=== PATIENT | female | born 1970 | race Caucasian/White ===

== ENCOUNTER 2016-07-04 08:51 | Day surgery (SDC) | payer OTHER ==
[2016-07-04] VITALS (8 sets, daily range): BP systolic 104–178; BP diastolic 53–112; PULSE 88–98; RESP 18–20; TEMP 97.4; O2SAT 93–99
[~2016-07-04 08:51] MED LIST: HYDR-3533 PO; MORP1CAP63 PO; XELO500T PO
[2016-07-04] MEDS ORDERED: EMEN80PA PO (09:50)
[2016-07-04] MEDS ORDERED: LIDOCAINE 1%/EPINEPHrine 1:100,000 SOLN 20 ML VIAL ONE (09:59)
[2016-07-04] MEDS ORDERED: fentaNYL CITRATE 250 MCG/5 ML AMP ONE (10:20)
[2016-07-04] MEDS ORDERED: MIDAZOLAM HCL 5 MG/5 ML VIAL ONE (10:20)
[2016-07-04] MEDS ORDERED: BUPIVACAINE HCL PF 0.75% 30 ML VIAL ONE (10:32)
[2016-07-04] MEDS ORDERED: THROMBIN (TOPICAL) 5,000 UNIT VIAL ONE (10:51)
[2016-07-04] MEDS ORDERED: SODIUM CHLOR 0.9% 1000 ML INJ 1,000 ML IV SCH (11:00)
[2016-07-04] MEDS ORDERED: ONDANSETRON HCL 4 MG/2 ML VIAL ONE (11:18)
[2016-07-04] MEDS ORDERED: HYDROmorphone HCL PF 1 MG/ML VIAL IV PRN (12:15)
[2016-07-04] MEDS ORDERED: SODIUM CHLORIDE 0.9% FLUSH 10 ML FLUSH IV FLUSH PRN (12:15)
--- NOTE | 2016-07-04 14:31 | RADRPT ---
EXAM DATE/TIME: 07/04/2016 11:00 [facility] COMPARISON: CT NEEDLE BIOPSY LIVER, December 20, 2015, 8:37. INDICATIONS : Liver mass. SEDATION TIME: 45 minutes BIOPSY SITE: Liver MEDICATION(S): 1.) 4 mg midazolam (Versed) IV 2.) 200 mcg fentanyl (Sublimaze) IV DEVICE(S): 1.) 18 gauge Conrad blunt needle 2.) 20 gauge Temno core biopsy needle MEDICAL HISTORY : Carcinoma, breast. Metastatic, liver. Hypertension. SURGICAL HISTORY : section. Hysterectomy. ENCOUNTER: Initial ACUITY: 1 day PAIN SCORE: 0/10 LOCATION: Liver A total of two core specimen(s) were obtained and sent to the laboratory for pathologic evaluation. PROCEDURE: 1. CT guided liver biopsy. 2. Conscious sedation with continuous EKG and oximetry monitoring. 3. EKG and oximetry remained stable throughout the procedure. Prior to the procedure informed consent was obtained. Any appropriate prior imaging studies were rev iewed. Using automated exposure control and adjustment of the mA and/or kV according to patient size, radiat ion dose was kept as low as reasonably achievable to obtain optimal diagnostic quality images. The site was prepped in a sterile fashion. Full sterile technique was used, including cap, mask, cornelius rile gloves and gown and a large sterile sheet. Hand hygiene and 2% chlorhexidine and/or betadine/al cohol prep was utilized per protocol for cutaneous antisepsis. The skin and subcutaneous tissues wer e infiltrated with local anesthetic solution. Under CT guidance an 18 gauge blunt needle was placed down to the lesion in the right lobe of the stacey er. 2 cores were obtained. The track was embolized with Gelfoam and thrombin. The patient tolerated the procedure well and there were no complications. The patient was returned to the Radiology Outpatient Unit in stable condition. CONCLUSION: Uncomplicated CT guided biopsy. Material was collected for the ordered genetic studies. Casey Sanchez MD FACR on July 04, 2016 at 14:29 Board Certified Radiologist. This report was verified electronically.
[2016-09-21] MEDS ORDERED: MORP1TAB24 PO (14:46)
== END 2016-07-04 16:00 | disposition home or self-care (01) ==
LOC: HRAD 08:51 → HRIP 08:54 → HRAD 16:00
PROVIDERS: ATTEND Internal Medicine Hematology
DX: C78.7 Secondary malignant neoplasm of liver and intrahepatic bile duct (principal); C79.52 Secondary malignant neoplasm of bone marrow; C50.919 Malignant neoplasm of unspecified site of unspecified female breast; D70.1 Agranulocytosis secondary to cancer chemotherapy; I10 Essential (primary) hypertension
CPT/HCPCS: 47000; 77012; 88307; J1170; J1642; J2250; J2405; J3010; J7030

== ENCOUNTER 2016-09-14 09:41 | Day surgery (SDC) | payer OTHER ==
[~2016-09-14 09:41] MED LIST changes: +EMEN80PA PO
[2016-09-14 10:48] VITALS: BP 127/79; PULSE 97; RESP 16; TEMP 97.7; O2SAT 98
[2016-09-14 12:00] VITALS: BP 138/84; PULSE 89; RESP 20; TEMP 98.1; O2SAT 98
[2016-09-14 12:15] VITALS: BP 124/68; PULSE 74; RESP 18; O2SAT 97
[2016-09-14] MEDS ORDERED: ALBUMIN HUMAN 25% 25 GM/100 ML BAGP IV ONE (12:30)
--- NOTE | 2016-09-14 12:51 | RADRPT ---
EXAM DATE/TIME: 09/14/2016 10:35 [facility] COMPARISON: No previous studies available for comparison. INDICATIONS : Ascites. MEDICAL HISTORY : Hypertension. Left breast cancer. Liver mets. Bone mets. SURGICAL HISTORY : section. Hysterectomy. D&C. ENCOUNTER: Initial ACUITY: 2 weeks PAIN SCORE: 0/10 LOCATION: Right lower quadrant FLUID: Total volume of 3400 cc of clear, yellow fluid was removed. Fluid was sent to lab for ordered studies. Post procedure scanning reveals no hematoma or other complication. TECHNIQUE: 1. Ultrasound guidance for abdominal paracentesis. 2. Paracentesis. The risks, benefits, and alternatives to ultrasound guided paracentesis were explained to the patient in detail including the risk of bleeding and infection. Written and verbal informed consent was obt ained. With the patient on the ultrasound table, ultrasound imaging was used to select the most appropriate approach for paracentesis. Overlying skin was prepped and draped in the usual sterile fashion and wi th a local anesthetic, a dermatotomy was made with an 11 blade scalpel. A 6 [place] Lsu[employer] ca theter was introduced into the peritoneal cavity and fluid was collected. The patient tolerated the procedure well and left the ultrasound suite in stable condition. CONCLUSION: Uncomplicated ultrasound guided paracentesis. Casey Sanchez MD FACR on September 14, 2016 at 12:49 Board Certified Radiologist. This report was verified electronically.
[2016-09-21] MEDS ORDERED: MORP1TAB24 PO (14:46)
== END 2016-09-14 12:31 | disposition home or self-care (01) ==
LOC: HRAD 09:41 → HRIP 09:44 → HRAD 12:31
PROVIDERS: ATTEND Internal Medicine Hematology
DX: R18.8 Other ascites (principal); C50.912 Malignant neoplasm of unspecified site of left female breast; C78.7 Secondary malignant neoplasm of liver and intrahepatic bile duct; C79.51 Secondary malignant neoplasm of bone; I10 Essential (primary) hypertension
CPT/HCPCS: 49083; C1729

== ENCOUNTER 2016-09-21 14:12 | Inpatient (IN) | payer OTHER ==
[~2016-09-21] VITALS: Ht 165.1 cm; Wt 92.6 kg
[2016-09-21 14:17] VITALS: BP 145/77; PULSE 98; RESP 20; TEMP 97.6; O2SAT 97
[2016-09-21] MEDS ORDERED: MORP1TAB24 PO ×2 (14:46)
[2016-09-21] MEDS ORDERED: CAPE1TAB2 PO (14:46)
[2016-09-21] MEDS ORDERED: OXYC-395 PO (14:47)
[2016-09-21 14:49] VITALS: PULSE 100; RESP 18; O2SAT 96
[2016-09-21] MEDS ORDERED: SODIUM CHLOR 0.9% 1000 ML INJ 1,000 ML IV SCH (15:20)
--- NOTE | 2016-09-21 15:22 | PD ---
HPI Chief Complaint: Pain: Acute or Chronic Time Seen by Provider: 15:22 Travel History International Travel<30 days: No Contact w/Intl Traveler<30days: No Traveled to known affect area: No History of Present Illness HPI 46-year-old female with a history of breast cancer with metastases to the liver and bone presents to the emergency department for evaluation of nausea, vomiting , back pain and abdominal distention. She is currently receiving chemotherapy every 14 days, last received 09/10/16. The patient states that she's had abdominal distention for the past 2 weeks. States that she had a paracentesis performed as an outpatient one week ago here in our IR suite. She states she initially had some improvement of symptoms after the paracentesis but it has since returned. States she's also had some abdominal cramping over the last 2 days intermittently. She states that over the past 4 days she's had back spasming in her middle and left lower back after receiving a massage. States that her oncologist Dr. Rose ordered an outpatient MRI to rule out occult fracture and she was scheduled to have it today however she started having nausea and vomiting and was told to come to the emergency department. She states she is also having some mild lightheadedness and shortness of breath. She denies any fever, chills, chest pain, diarrhea, dysuria, headache, cough or cold symptoms. Prior abdominal surgeries include hysterectomy. No other complaints. PFSH Past Medical History Hx Anticoagulant Therapy: No Depression: Yes Cancer: Yes (left breast with mets to the bone and liver) Cardiovascular Problems: No Chemotherapy: Yes (09/10/16) Cerebrovascular Accident: No Diabetes: No Diminished Hearing: No Endocrine: No Glaucoma: No Genitourinary: No Hepatitis: No Hiatal Hernia: No Hypertension: Yes Immune Disorder: No Musculoskeletal: No Neurologic: Yes (hx of migraines) Psychiatric: No Reproductive: No Respiratory: No Immunizations Current: No Thyroid Disease: No ?: Not Past Surgical History Abdominal Surgery: No AICD: No Body Medical Devices: infusaport Cardiac Surgery: No Section: Yes Ear Surgery: No Endocrine Surgery: No Eye Surgery: No Genitourinary Surgery: No Gynecologic Surgery: Yes (x3 c-sections d and c x2 hysterectomy) Hysterectomy: Yes Joint Replacement: No Oral Surgery: No Pacemaker: No Thoracic Surgery: Yes (RIGHT PORT INSERTED) Other Surgery: Yes Social History Alcohol Use: Yes (OCCAS.) Tobacco Use: Yes (QUIT) Substance Use: No Allergies-Medications (Allergen,Severity, Reaction): Coded Allergies: No Known Allergies (Verified , 09/21/16) Reported Meds & Prescriptions Reported Meds & Active Scripts Active Reported Oxycodone (Oxycodone HCl) 10 Mg Tab 10 Mg PO Q4H PRN Morphine ER (Morphine Sulfate) 15 Mg Tab 5 Mg PO BID Capecitabine 500 Mg Tab 1,500 Mg PO BID Cytotoxic agent. Swallow whole with water 30 minutes after a meal. Do not cut or crush. Review of Systems Except as stated in HPI: all other systems reviewed are Neg Physical Exam Narrative GENERAL: Well-nourished and well-developed pleasant patient in no acute distress who is nontoxic appearing. SKIN: Warm and dry. HEAD: Normocephalic and atraumatic. EYES: No injection, drainage, or hyphema noted. PERRLA. EOMI. ENT: No nasal drainage noted. Oropharynx is clear. NECK: Supple and the trachea is midline. CARDIOVASCULAR: Regular rate and rhythm. RESPIRATORY: Breath sounds are equal bilaterally with no accessory muscle use, wheezing, rhonchi, or crackles. GASTROINTESTINAL: Abdominal distention noted however soft and nontender. No rebound tenderness or guarding. MUSCULOSKELETAL: No obvious deformities, swelling, cyanosis, or ecchymosis is present throughout the upper and lower extremities. Patient has full range of motion without any signs of neurovascular compromise. BACK: Mild tenderness to palpation of left lumbar paraspinal muscles. No obvious deformities, bony point tenderness, or crepitus noted throughout the thoracic and lumbar vertebrae. NEUROLOGICAL: Awake, alert, and oriented. Normal speech and gait. Cranial nerves are grossly intact. Data Data Last Documented VS Vital Signs Date Time Temp Pulse Resp B/P Pulse Ox O2 Delivery O2 Flow Rate FiO2 09/21/16 19:30 97 16 129/77 96 Room Air 09/21/16 14:17 97.6 Orders Complete Blood Count With Diff (09/21/16 15:20) Comprehensive Metabolic Panel (09/21/16 15:20) Lipase (09/21/16 15:20) Lactic Acid (09/21/16 15:20) Prothrombin Time / Inr (Pt) (09/21/16 15:20) Act Partial Throm Time (Ptt) (09/21/16 15:20) Urinalysis - C+S If Indicated (09/21/16 15:20) Ct Abd/Pel W Iv Contrast(Rout) (09/21/16 15:20) Iv Access Insert/Monitor (09/21/16 15:20) Ecg Monitoring (09/21/16 15:20) Oximetry (09/21/16 15:20) Morphine Inj (Morphine Inj) (09/21/16 15:30) Ondansetron Inj (Zofran Inj) (09/21/16 15:30) Sodium Chlor 0.9% 1000 Ml Inj (Ns 1000 M (09/21/16 15:20) Sodium Chloride 0.9% Flush (Ns Flush) (09/21/16 15:30) Mri L Spine W&W/O Contrast (09/21/16 ) Chest, Single Ap (09/21/16 16:49) Iohexol 350 Inj (Omnipaque 350 Inj) (09/21/16 17:48) Gadodiamide Pf Inj (Omniscan Pf Inj) (09/21/16 18:41) Invasive Rad Dept Consult (09/21/16 ) Admit Order (Ed Use Only) (09/21/16 19:51) Labs Laboratory Tests Test 09/21/16 09/21/16 09/21/16 15:20 15:50 15:55 Prothrombin Time 12.8 SEC Prothromb Time International 1.2 RATIO Ratio Activated Partial 29.4 SEC Thromboplast Time White Blood Count 6.0 TH/MM3 Red Blood Count 4.05 MIL/MM3 Hemoglobin 12.4 GM/DL Hematocrit 37.3 % Mean Corpuscular Volume 92.2 FL Mean Corpuscular Hemoglobin 30.7 PG Mean Corpuscular Hemoglobin 33.3 % Concent Red Cell Distribution Width 16.5 % Platelet Count 111 TH/MM3 Mean Platelet Volume 8.6 FL Neutrophils (%) (Auto) 81.7 % Lymphocytes (%) (Auto) 10.1 % Monocytes (%) (Auto) 7.4 % Eosinophils (%) (Auto) 0.4 % Basophils (%) (Auto) 0.4 % Neutrophils # (Auto) 4.9 TH/MM3 Lymphocytes # (Auto) 0.6 TH/MM3 Monocytes # (Auto) 0.4 TH/MM3 Eosinophils # (Auto) 0.0 TH/MM3 Basophils # (Auto) 0.0 TH/MM3 CBC Comment DIFF FINAL Differential Comment Sodium Level 133 MEQ/L Potassium Level 4.4 MEQ/L Chloride Level 98 MEQ/L Carbon Dioxide Level 25.3 MEQ/L Anion Gap 10 MEQ/L Blood Urea Nitrogen 14 MG/DL Creatinine 0.50 MG/DL Estimat Glomerular Filtration 132 ML/MIN Rate Random Glucose 101 MG/DL Calcium Level 8.7 MG/DL Total Bilirubin 4.5 MG/DL Aspartate Amino Transf 385 U/L (AST/SGOT) Alanine Aminotransferase 63 U/L (ALT/SGPT) Alkaline Phosphatase 510 U/L Total Protein 6.1 GM/DL Albumin 2.4 GM/DL Lipase 314 U/L Urine Color DARK-ORANGE Urine Turbidity HAZY Urine pH 6.0 Urine Specific [place] 1.037 Urine Protein 30 mg/dL Urine Glucose (UA) NEG mg/dL Urine Ketones 40 mg/dL Urine Occult Blood MOD Urine Nitrite NEG Urine Bilirubin MOD Urine Urobilinogen 4.0 MG/DL Urine Leukocyte Esterase NEG Urine RBC 10 /hpf Urine WBC 1 /hpf Urine Squamous Epithelial 16 /hpf Cells Urine Mucus MANY /lpf Microscopic Urinalysis Comment CULT NOT INDICATED Lactic Acid Level 2.8 mmol/L MDM Medical Decision Making Medical Screen Exam Complete: Yes Emergency Medical Condition: Yes Differential Diagnosis Ascites versus dehydration versus electrolyte abnormality versus colitis versus other Narrative Course 46-year-old female with a history of breast cancer with metastases to the liver and bone presents to the emergency department for evaluation of ascites, back pain, nausea and vomiting. Patient is afebrile, she is tachycardic with a heart rate of 98 bpm. Otherwise vital signs are within normal limits. On physical examination she does have some abdominal distention however abdomen is soft and nontender. No peritoneal signs. IV access is obtained, labs were drawn and sent. Patient is administered IV fluids, morphine and Zofran. CT of the abdomen and pelvis has been ordered and is pending. She was scheduled to have an outpatient lumbar MRI today to rule out occult fracture per her oncologist and therefore will do this as well. CBC is unremarkable. CMP shows elevated LFTs, most recent prior for comparison were one year ago. Lactic acid is 2.8. Coags are unremarkable. Urinalysis shows 30 protein, 40 ketones, moderate occult blood, moderate bilirubin, 4.0 urobilinogen, 10 red blood cells, many mucus. Chest x-ray is unremarkable. CT of the abdomen and pelvis with IV contrast shows progression of metastatic disease to the liver since 2015 in 2016. Also development of liver cirrhosis with varices. Moderate ascites. Progression of metastatic bone disease. MRI shows multiple metastatic lesions scattered throughout the lumbar spine. No central canal stenosis or neural impingement. No vertebral body collapse. Patient has symptomatic ascites with distention and shortness of breath. The patient had outpatient paracentesis last week and her ascites has returned since then and she is symptomatic again. She'll be kept under observation and have IR perform paracentesis tomorrow morning for symptomatic management. Physician Communication Physician Communication I spoke with Dr. Richardson [facility] who agrees to accept this patient under observation status. Diagnosis Primary Impression: Ascites Qualified Code: R18.8 - Other ascites Additional Impression: Breast cancer metastasized to liver Qualified Code: C50.919 - Breast cancer metastasized to liver, unspecified laterality Admitting Information Admitting Physician Requests: Observation Deborah Dodge Sep 21, 2016 15:22
[2016-09-21] MEDS ORDERED: SODIUM CHLORIDE 0.9% FLUSH 10 ML FLUSH IV FLUSH PRN ×2 (15:30→20:00)
[2016-09-21] MEDS ORDERED: MORPHINE SULFATE 4 MG/ML INJ IV PUSH ONE (15:30)
[2016-09-21] MEDS ORDERED: ONDANSETRON HCL 4 MG/2 ML VIAL IVP ONE (15:30)
[2016-09-21 16:21] VITALS: BP 107/79; PULSE 95; RESP 18; O2SAT 97
[2016-09-21 16:29] LABS: AUTOMATED NEUTROPHIL # 4.9 TH/MM3 (1.8-7.7); BASOPHIL % 0.4 % (0.0-2.0); EOSINOPHIL % 0.4 % (0.0-4.0); HEMATOCRIT 37.3 % (35.0-46.0); HEMO FLAGS DIFF FINAL; LYMPH % 10.1 % (9.0-44.0); LYMPHOCYTE # 0.6 TH/MM3 (1.0-4.8); MEAN CELL VOLUME 92.2 FL (80.0-100.0); MEAN CORPUSCULAR HEMOGLOBIN 30.7 PG (27.0-34.0); MEAN CORPUSCULAR HGB CONC 33.3 % (32.0-36.0); MONO % 7.4 % (0.0-8.0); NEUT % 81.7 % (16.0-70.0); PLATELET COUNT 111 TH/MM3 (150-450); RED BLOOD COUNT 4.05 MIL/MM3 (4.00-5.30); RED CELL DISTRIBUTION WIDTH 16.5 % (11.6-17.2)
[2016-09-21 16:35] LABS: BLOOD, URINE MOD (NEG); COMMENT (UR) CULT NOT INDICATED; CULTURE IF INDICATED CULT NOT INDICATED; GLUCOSE,URINE NEG (NEG); KETONE, URINE 40 mg/dL (NEG); MUCUS URINE MANY /lpf (OCC); NITRITE,URINE NEG (NEG); SQUAMOUS EPITHELIAL CELL URINE 16 /hpf (0-5); URINE COLOR DARK-ORANGE (YELLW/STRAW)
[2016-09-21 16:47] LABS: APTT (PATIENT) 29.4 SEC (24.3-30.1); INTERNATIONAL NORMALIZED RATIO 1.2 RATIO; PROTHROMBIN TIME - PATIENT 12.8 SEC (9.8-11.6)
[2016-09-21 16:53] LABS: ANION GAP 10 MEQ/L (5-15); BICARBONATE 25.3 MEQ/L (21.0-32.0); BLOOD UREA NITROGEN 14 MG/DL (7-18); CHLORIDE 98 MEQ/L (98-107); GLOMERULAR FILTRATION RATE 132 ML/MIN (>89); POTASSIUM 4.4 MEQ/L (3.5-5.1); SODIUM (NA) 133 MEQ/L (136-145)
[2016-09-21 16:55] LABS: ALT (GPT) 63 U/L (10-53); AST (GOT) 385 U/L (15-37)
[2016-09-21 16:57] LABS: ALKALINE PHOSPHATASE 510 U/L (45-117); TOTAL BILIRUBIN ADULT 4.5 MG/DL (0.2-1.0)
[2016-09-21] MEDS ORDERED: IOHEXOL 350 MG/ML 10 ML VIAL (for RAD DIAG) IV ONE (17:48)
--- NOTE | 2016-09-21 17:58 | RADRPT ---
EXAM DATE/TIME: 09/21/2016 17:35 [facility] COMPARISON: CT ABDOMEN W/O CONTRAST, December 21, 2015, 16:47. INDICATIONS : Nausea and vomiting since this morning, swollen abdomen. IV CONTRAST: 99 cc Omnipaque 350 (iohexol) IV ORAL CONTRAST: No oral contrast ingested. RADIATION DOSE: 17.30 CTDIvol (mGy) MEDICAL HISTORY : Carcinoma, breast. Liver and bone mets. Chemo. SURGICAL HISTORY : Hysterectomy. ENCOUNTER: Initial ACUITY: 1 day PAIN SCALE: 9/10 LOCATION: Bilateral abdomen TECHNIQUE: Volumetric scanning of the abdomen and pelvis was performed. Using automated exposure control and ad justment of the mA and/or kV according to patient size, radiation dose was kept as low as reasonably achievable to obtain optimal diagnostic quality images. DICOM format image data is available electro nically for review and comparison. FINDINGS: Limited bases are clear. There is liver cirrhosis and widespread metastatic disease to the liver which does appear worse annie red with December 2015. There is moderate ascites that has developed. There is also development of v arices in the upper abdomen and recannulization of the periumbilical veins. Spleen, adrenals, kidneys and pancreas are stable. There is metastatic bone disease that has worsened with a 2 cm lesion now present at L2 on the left s tal. Other lesions are stable to slightly increased in size as well. No pelvic masses. There is pelvic ascites. CONCLUSION: 1. Progression of metastatic disease to the liver since 2014 and 2015. Also development of liver cirr hosis with varices. 2. Moderate ascites. 3. Progression of metastatic bone disease. Braeden Duncan MD on September 21, 2016 at 17:50 Board Certified Radiologist. This report was verified electronically.
--- NOTE | 2016-09-21 18:33 | RADRPT ---
EXAM DATE/TIME: 09/21/2016 17:48 [facility] COMPARISON: No previous studies available for comparison. INDICATIONS : Shortness of breath. Upper abdominal pain. MEDICAL HISTORY : Breast cancer with metastasis to liver and bone. SURGICAL HISTORY : Infusaport. ENCOUNTER: Initial ACUITY: 2 weeks PAIN SCORE: 0/10 LOCATION: chest FINDINGS: A single view of the chest demonstrates the lungs to be symmetrically aerated without evidence of mas s, infiltrate or effusion. Eventration of the right hemidiaphragm with elevation of the right hemidia phragm. The cardiomediastinal contours are unremarkable. Osseous structures are intact. A power por t overlies the right chest. CONCLUSION: No acute disease. Bro Davies Jr., MD on September 21, 2016 at 18:30 Board Certified Radiologist. This report was verified electronically.
[2016-09-21] MEDS ORDERED: GADODIAMIDE PF 287 MG/ML 5 ML VIAL (for RAD MRI) IV ONE (18:41)
[2016-09-21 19:30] VITALS: BP 129/77; PULSE 97; RESP 16; O2SAT 96
--- NOTE | 2016-09-21 19:46 | RADRPT ---
EXAM DATE/TIME: 09/21/2016 18:19 [facility] COMPARISON: CT ABDOMEN & PELVIS W CONTRAST, September 21, 2016, 17:35. INDICATIONS : Metastatic disease. CONTRAST: 19 cc Omniscan (gadodiamide) IV MEDICAL HISTORY : Carcinoma, breast. Metastatic disease. SURGICAL HISTORY : Hysterectomy. section. Infusa-port placment. ENCOUNTER: Subsequent ACUITY: 3 day PAIN SCORE: 8/10 LOCATION: Lower back. TECHNIQUE: Multiplanar multisequence MRI of the lumbar spine was performed with and without contrast. FINDINGS: The most caudal appearing lumbar vertebra is numbered as L5. VERTEBRAE: There is abnormal signal involving the marrow consistent with a marrow replacing process such as meta static disease. There are multiple areas of low signal involving the marrow throughout the T1-weighte d sequence involving T12, L2, L3, and L4. The vertebral body heights are maintained. CONUS: Normal level and configuration. POST CONTRAST: Heterogeneous enhancement of the lesions previously described. He show faint heterogeneous enhancemen t. T12-L1: The thecal sac has a normal diameter. No evidence of disc bulge or protrusion. The neural foramina are patent bilaterally. L1-L2: The thecal sac has a normal diameter. No evidence of disc bulge or protrusion. The neural foramina are patent bilaterally. L2-L3: The thecal sac has a normal diameter. No evidence of disc bulge or protrusion. The neural foramina are patent bilaterally. L3-L4: The thecal sac has a normal diameter. No evidence of disc bulge or protrusion. The neural foramina are patent bilaterally. L4-L5: The thecal sac has a normal diameter. No evidence of disc bulge or protrusion. The neural foramina are patent bilaterally. L5-S1: The thecal sac has a normal diameter. No evidence of disc bulge or protrusion. The neural foramina are patent bilaterally. CONCLUSION: 1. Multiple metastatic lesions scattered throughout the lumbar spine. No central canal stenosis or ne ural impingement. No vertebral body collapse. Bro Davies Jr., MD on September 21, 2016 at 19:39 Board Certified Radiologist. This report was verified electronically.
[2016-09-21] MEDS ORDERED: LACTULOSE SYRUP 20 GM/30 ML CUP PO PRN (20:00)
[2016-09-21] MEDS ORDERED: MORPHINE SULFATE 4 MG/ML INJ IV PRN ×2 (20:00→23:00)
[2016-09-21] MEDS ORDERED: SENNOSIDES 8.6 MG TAB PO PRN (20:00)
[2016-09-21] MEDS ORDERED: ACETAMINOPHEN 325 MG TAB PO PRN (20:00)
[2016-09-21] MEDS ORDERED: BISACODYL 10 MG SUPP RECTAL PRN (20:00)
[2016-09-21] MEDS ORDERED: MAGNESIUM HYDROXIDE SUSP 30 ML CUP PO PRN (20:00)
--- NOTE | 2016-09-21 20:02 | HHI.HP ---
[facility] [place] [facility] Stella Knox MD Admission Diagnosis Ascites, Breast Cancer w/ Metastases to Liver and Bone Diagnoses: (1) Ascites Diagnosis: Principal (2) Breast cancer metastasized to liver Diagnosis: Principal (3) Chronic back pain Diagnosis: Principal Travel History International Travel<30 Days: No Contact w/Intl Traveler <30 Da: No Traveled to Known Affected Are: No History of Present Illness This is a 46-year-old female with a PMH of Metastatic Breast CA who presented to the ER w/ progressive abdominal distention and worsening back pain x2 days. Follows w/ Dr. Rose as outpatient, currently on Chemotherapy, c/o back pain for which she was to have outpatient L-Spine MRI today, however presented to ER instead due to symptoms. Denies fever, chills, nausea or vomiting. On arrival , BP 145/77, HR 98, O2 sat 97% on RA, Afebrile. CBC unremarkable except for platelets 111, previously 208 on 12/20/15. Chemistry unremarkable except for elevated LFTs in comparison to previous labs from 04/07/15. Lactic Acid 2.8. UA negative for UTI. CXR with no acute findings. CT Abd/Pelvis w/ progression of metastatic disease to liver with development of liver cirrhosis and varices, moderate ascites, progression of metastatic bone disease. MRI L-spine with multiple metastatic lesions throughout lumbar spine no canal stenosis or impingement, patient aware of findings. Recent Paracentesis 09/14/16 w/ 1L hazy fluid removed, pathology negative for malignant cells. Review of Systems Except as stated in HPI: all other systems reviewed are Neg ROS: 14 point review of systems otherwise negative. Past Family Social History Past Medical History PMH: Metastatic Breast CA Past Surgical History PAST SURGICAL HISTORY: , Hysterectomy, Right [id number]-g-[id number] Allergies: Coded Allergies: No Known Allergies (Verified , 09/21/16) Family History PAST FAMILY HISTORY: Reviewed. No h/o DM or CAD Social History PAST SOCIAL HISTORY: Occasional alcohol. Negative for tobacco or drugs. Physical Exam Vital Signs Vital Signs Date Time Temp Pulse Resp B/P Pulse Ox O2 Delivery O2 Flow Rate FiO2 09/21/16 19:30 97 16 129/77 96 Room Air 09/21/16 16:21 95 18 107/79 97 Room Air 09/21/16 14:49 100 18 96 09/21/16 14:17 97.6 98 20 145/77 97 Room Air Physical Exam PE: GENERAL: Elderly white female in no acute distress. Mother bedside. HEENT: PERRLA, EOMI. No scleral icterus or conjunctival pallor. No lid lag or facial droop. CARDIOVASCULAR: Regular rate and rhythm. No obvious murmurs to auscultation. No chest tenderness to palpation. RESPIRATORY: No obvious rhonchi or wheezing. Clear to auscultation. Breath sounds equal bilaterally. GASTROINTESTINAL: Abdomen distended but soft, nontender. BS normal. MUSCULOSKELETAL: Extremities without clubbing, cyanosis, or edema. No obvious deformities. NEUROLOGICAL: Awake, alert and oriented x4. No focal neurologic deficits. Moving both upper and lower extremities spontaneously. Laboratory Laboratory Tests Test 09/21/16 09/21/16 09/21/16 15:20 15:50 15:55 Prothrombin Time 12.8 Prothromb Time International 1.2 Ratio Activated Partial 29.4 Thromboplast Time White Blood Count 6.0 Red Blood Count 4.05 Hemoglobin 12.4 Hematocrit 37.3 Mean Corpuscular Volume 92.2 Mean Corpuscular Hemoglobin 30.7 Mean Corpuscular Hemoglobin 33.3 Concent Red Cell Distribution Width 16.5 Platelet Count 111 Mean Platelet Volume 8.6 Neutrophils (%) (Auto) 81.7 Lymphocytes (%) (Auto) 10.1 Monocytes (%) (Auto) 7.4 Eosinophils (%) (Auto) 0.4 Basophils (%) (Auto) 0.4 Neutrophils # (Auto) 4.9 Lymphocytes # (Auto) 0.6 Monocytes # (Auto) 0.4 Eosinophils # (Auto) 0.0 Basophils # (Auto) 0.0 CBC Comment DIFF FINAL Differential Comment Sodium Level 133 Potassium Level 4.4 Chloride Level 98 Carbon Dioxide Level 25.3 Anion Gap 10 Blood Urea Nitrogen 14 Creatinine 0.50 Estimat Glomerular Filtration 132 Rate Random Glucose 101 Calcium Level 8.7 Total Bilirubin 4.5 Aspartate Amino Transf 385 (AST/SGOT) Alanine Aminotransferase 63 (ALT/SGPT) Alkaline Phosphatase 510 Total Protein 6.1 Albumin 2.4 Lipase 314 Urine Color DARK-ORANGE Urine Turbidity HAZY Urine pH 6.0 Urine Specific [place] 1.037 Urine Protein 30 Urine Glucose (UA) NEG Urine Ketones 40 Urine Occult Blood MOD Urine Nitrite NEG Urine Bilirubin MOD Urine Urobilinogen 4.0 Urine Leukocyte Esterase NEG Urine RBC 10 Urine WBC 1 Urine Squamous Epithelial 16 Cells Urine Mucus MANY Microscopic Urinalysis Comment CULT NOT INDICATED Lactic Acid Level 2.8 Result Diagram: 09/21/16 1550 09/21/16 1550 Assessment and Plan Problem List: (1) Ascites ICD Code: R18.8 Status: Acute (2) Breast cancer metastasized to liver ICD Code: C50.919 Status: Acute (3) Chronic back pain ICD Code: M54.9 Status: Acute Assessment and Plan A/P: 1. Ascites: Recurrent. s/p Paracentesis 09/14/16 w/ 1L fluid removed, cytology negative for malignancy, now w/ recurrent ascites. CT Abd/Pelvis w/ metastatic disease to liver with element of cirrhosis and varices, moderate ascites, images reviewed by me. Consult for IR ordered by ER physician for Paracentesis in am. 2. Breast CA: w/ Metastatic Disease to liver/spine. CT Abd/Pelvis as above w / progression of disease. Follows w/ Dr. Rose as outpatient, currently on Chemo. 3. Back Pain: Chronic. Secondary to metastatic disease. MRI L-Spine w/ multiple metastatic lesions scattered throughout lumbar spine however no canal stenosis or neural impingement, images reviewed by me. Currently prescribed Morphine 5mg bid, however states she does not normally take pain medications. Will resume home meds, Morphine IV as needed. 4. DVT Prophylaxis: SCD/Teds. 5. Social work for d/c planning as needed. 6. Case discussed w/ ER physician at length Problem Qualifiers (1) Ascites: Qualified Code: R18.8 - Other ascites (2) Breast cancer metastasized to liver: Qualified Code: C50.919 - Breast cancer metastasized to liver, unspecified laterality Lily Richardson MD Sep 21, 2016 20:02
[2016-09-21] MEDS ORDERED: MORPHINE SULFATE 15 MG CONTROLLED RELEASE TAB PO SCH (21:00)
[2016-09-21] MEDS ORDERED: CAPECITABINE 500 MG PO SCH (21:00)
[2016-09-21] MEDS: DOCUSATE SODIUM 50 MG/SENNA 8.6 MG TAB PO SCH (22:41)
[2016-09-21] MEDS: SODIUM CHLORIDE 0.9% FLUSH 10 ML FLUSH IV FLUSH SCH (22:42)
[2016-09-21] MEDS: ONDANSETRON HCL 4 MG/2 ML VIAL IVP PRN (22:42)
[2016-09-21 22:53] VITALS: BP 136/75; PULSE 98; RESP 18; TEMP 98.6; O2SAT 97
[2016-09-22] VITALS (7 sets, daily range): BP systolic 126–143; BP diastolic 77–87; PULSE 60–105; RESP 18; TEMP 97.8–99.4; O2SAT 92–98
[2016-09-22] MEDS: SODIUM CHLORIDE 0.9% FLUSH 10 ML FLUSH IV FLUSH SCH ×2 (09:01→20:29)
[2016-09-22] MEDS: MORPHINE SULFATE 15 MG CONTROLLED RELEASE TAB PO SCH ×2 (09:02→20:28)
[2016-09-22] MEDS: DOCUSATE SODIUM 50 MG/SENNA 8.6 MG TAB PO SCH ×2 (09:03→20:26)
[2016-09-22] MEDS: ONDANSETRON HCL 4 MG/2 ML VIAL IVP PRN (09:04)
[2016-09-22 10:34] LABS: AUTOMATED NEUTROPHIL # 3.5 TH/MM3 (1.8-7.7); BASOPHIL % 0.4 % (0.0-2.0); EOSINOPHIL # 0.1 TH/MM3 (0-0.4); EOSINOPHIL % 1.5 % (0.0-4.0); HEMATOCRIT 35.3 % (35.0-46.0); HEMO FLAGS DIFF FINAL; LYMPH % 14.2 % (9.0-44.0); LYMPHOCYTE # 0.7 TH/MM3 (1.0-4.8); MEAN CELL VOLUME 92.3 FL (80.0-100.0); MEAN CORPUSCULAR HGB CONC 33.5 % (32.0-36.0); MONO % 12.2 % (0.0-8.0); NEUT % 71.7 % (16.0-70.0); PLATELET COUNT 106 TH/MM3 (150-450); RED BLOOD COUNT 3.83 MIL/MM3 (4.00-5.30); RED CELL DISTRIBUTION WIDTH 16.6 % (11.6-17.2); WHITE BLOOD COUNT 4.9 TH/MM3 (4.0-11.0)
[2016-09-22 10:48] LABS: ALT (GPT) 64 U/L (10-53); ANION GAP 7 MEQ/L (5-15); AST (GOT) 370 U/L (15-37); BICARBONATE 29.1 MEQ/L (21.0-32.0); BLOOD UREA NITROGEN 10 MG/DL (7-18); CHLORIDE 100 MEQ/L (98-107); GLOMERULAR FILTRATION RATE 94 ML/MIN (>89); POTASSIUM 4.2 MEQ/L (3.5-5.1); SODIUM (NA) 136 MEQ/L (136-145)
[2016-09-22 10:50] LABS: ALKALINE PHOSPHATASE 457 U/L (45-117); TOTAL BILIRUBIN ADULT 4.6 MG/DL (0.2-1.0)
--- NOTE | 2016-09-22 11:55 | EKG ---
Date Performed: 09/21/2016 Time Performed: 18:10:33 PTAGE: 46 years EKG: Sinus rhythm LOW QRS VOLTAGE IN PRECORDIAL LEADS POSSIBLE ANTERIOR MYOCARDIAL INFARCTION Since previous tracing, no significant change noted BORDERLINE ECG PREVIOUS TRACING : 03/02/2010 00.30 DOCTOR: Tomi Turcios Interpretating Date/Time 09/22/2016 11:53:55
--- NOTE | 2016-09-22 17:07 | HHI.PR ---
Subjective Remarks Pt is a 46 y/o with metastatic breast cancer. Pt c/o recurrent abdominal pain and distension. Pt had first ever paracentesis on 09/14/16, but ascites appears to have reoccurred. Pt also c/o nausea. Pt fells that her pain is controlled on current medication regimen and does NOT want me to increase her pain medications. Objective Vitals Vital Signs Date Time Temp Pulse Resp B/P Pulse Ox O2 Delivery O2 Flow Rate FiO2 09/22/16 16:16 97.9 60 18 126/80 95 09/22/16 12:17 97.9 101 18 129/83 96 09/22/16 08:26 97.8 105 18 139/80 96 09/22/16 03:33 99.4 102 18 134/83 96 09/21/16 22:53 98.6 98 18 136/75 97 09/21/16 19:30 97 16 129/77 96 Room Air 09/21/16 09/21/16 09/22/16 15:00 23:00 07:00 Intake Total 240 ml 120 ml Balance 240 ml 120 ml Intake Oral 240 ml 120 ml Result Diagram: 09/22/16 1010 09/22/16 1010 Imaging Last Impressions Chest X-Ray 09/21/16 1649 Signed Impressions: Service Date/Time: Wednesday, September 21, 2016 17:48 - CONCLUSION: No acute disease. Bro Davies Jr., MD Abdomen/Pelvis CT 09/21/16 1520 Signed Impressions: Service Date/Time: Wednesday, September 21, 2016 17:35 - CONCLUSION: 1. Progression of metastatic disease to the liver since 2014 and 2015. Also development of liver cirrhosis with varices. 2. Moderate ascites. 3. Progression of metastatic bone disease. Braeden Duncan MD Lumbar Spine MRI 09/21/16 0000 Signed Impressions: Service Date/Time: Wednesday, September 21, 2016 18:19 - CONCLUSION: 1. Multiple metastatic lesions scattered throughout the lumbar spine. No central canal stenosis or neural impingement. No vertebral body collapse. Bro Davies Jr., MD Objective Remarks GENERAL: This is a well-nourished, well-developed patient, in no apparent distress. CARDIOVASCULAR: Regular rate and rhythm without murmurs, gallops, or rubs. RESPIRATORY: Clear to auscultation. Breath sounds equal bilaterally. No wheezes , rales, or rhonchi. GASTROINTESTINAL: abdomen distended c/w ascites, +BS x 4, no g/r/r MUSCULOSKELETAL: Extremities without clubbing, cyanosis, or edema. NEURO: Alert & Oriented x4 to person, place, time, situation. Moves all ext x4 A/P Problem List: (1) Ascites Status: Acute Plan: - pt has metastatic breast cancer to liver and bone - albumin low at 2.9 - pt had firs paracentesis 09/14/16, pt has had a reoccurrence of ascites - request repeat paracentesis with IR (2) Breast cancer metastasized to liver Status: Acute Plan: - Pt follows with Dr. Rose - see above (3) Chronic back pain Status: Acute Plan: - MRI lumbar spine (09/22/16), shows multiple metastatic lesions - following paracentesis, will defer back to Dr. Rose - consider evaluation by Radiation Oncology Problem Qualifiers (1) Ascites: Qualified Code: R18.8 - Other ascites (2) Breast cancer metastasized to liver: Qualified Code: C50.919 - Breast cancer metastasized to liver, unspecified laterality Osmel Beal DO Sep 22, 2016 17:07
--- NOTE | 2016-09-22 18:58 | RADRPT ---
EXAM DATE/TIME: 09/22/2016 17:03 [facility] COMPARISON: US GUIDED ABD PARACENTESIS, September 14, 2016, 10:35. INDICATIONS : Ascites. MEDICAL HISTORY : Hypertension. Migraines. Depression. 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 Chemotherapy. SURGICAL HISTORY : section. Hysterectomy. Rhinoplasty. Right chest port. Dilation and curettage. ENCOUNTER: Subsequent ACUITY: 1 week PAIN SCORE: 7/10 LOCATION: Right lower quadrant FLUID: Total volume of 600 cc of clear, yellow fluid was removed. Fluid was discarded. Paracentesis was therapeutic only. Post procedure scanning reveals no hematoma or other complication. TECHNIQUE: 1. Ultrasound guidance for abdominal paracentesis. 2. Paracentesis. The risks, benefits, and alternatives to ultrasound guided paracentesis were explained to the patient in detail including the risk of bleeding and infection. Written and verbal informed consent was obt ained. With the patient on the ultrasound table, ultrasound imaging was used to select the most appropriate approach for paracentesis. Overlying skin was prepped and draped in the usual sterile fashion and wi th a local anesthetic, a dermatotomy was made with an 11 blade scalpel. A 6 Faroese [id number] ca theter was introduced into the peritoneal cavity and fluid was collected. Loculation of the ascites may be present as fluid was difficult to drain and at least 2 punctures had to be made to drain the 600 cc of ascites. The patient tolerated the procedure well and left the ultrasound suite in stable condition. CONCLUSION: Ultrasound-guided paracentesis yielding 600 cc of ascites. Loculations of the ascites are questioned as the fluid was difficult to drain. Jermaine Glez MD on September 22, 2016 at 18:50 Board Certified Radiologist. This report was verified electronically.
[2016-09-22] MEDS ORDERED: ONDANSETRON HCL 4 MG/2 ML VIAL IVP PRN (20:00)
[2016-09-22] MEDS ORDERED: LIDOCAINE HCL 1% PF 30 ML VIAL ONE (22:20)
[2016-09-23] VITALS (12 sets, daily range): BP systolic 109–153; BP diastolic 64–88; PULSE 66–109; RESP 12–22; TEMP 98.1–99.3; O2SAT 92–96
[2016-09-23] MEDS: MORPHINE SULFATE 15 MG CONTROLLED RELEASE TAB PO SCH ×2 (08:21→21:00)
[2016-09-23] MEDS: DOCUSATE SODIUM 50 MG/SENNA 8.6 MG TAB PO SCH ×2 (08:22→21:00)
[2016-09-23] MEDS: ONDANSETRON INJ 8 MG in DEXTROSE 5% IN WATER INJ 50 ML IV PRN ×2 (08:24)
[2016-09-23] MEDS: SODIUM CHLORIDE 0.9% FLUSH 10 ML FLUSH IV FLUSH SCH ×2 (09:08→21:00)
--- NOTE | 2016-09-23 15:43 | HHI.PR ---
Subjective Remarks Pt had paracentesis yesterday evening with removal of 600ml fluid. Today pt's abdomen feels less distended and painful. Pt is tolerating PO intake, but NOT full meals. Pt c/o continued epigastric pain. Pt also c/o dizziness which is most pronounced when she stands up to walk. Pt states that when she first stands up that she must wait a few minutes before she can walk d/t dizziness. Objective Vitals Vital Signs Date Time Temp Pulse Resp B/P Pulse Ox O2 Delivery O2 Flow Rate FiO2 09/23/16 14:59 98.5 98 16 114/71 93 09/23/16 11:00 98.4 99 12 136/88 94 09/23/16 07:20 99.3 109 22 131/84 92 09/23/16 04:32 98.1 104 16 153/80 93 09/23/16 00:17 98.1 66 16 120/72 96 09/22/16 21:30 20 09/22/16 19:41 98.2 103 18 143/77 93 09/22/16 18:15 98.9 101 137/77 98 09/22/16 17:30 98.0 102 137/87 92 09/22/16 16:16 97.9 60 18 126/80 95 09/22/16 09/22/16 09/23/16 15:00 23:00 07:00 Intake Total 250 ml Balance 250 ml Intake Oral 250 ml # Voids 2 Result Diagram: 09/22/16 1010 09/22/16 1010 Imaging Last Impressions Chest X-Ray 09/21/16 1649 Signed Impressions: Service Date/Time: Wednesday, September 21, 2016 17:48 - CONCLUSION: No acute disease. Bro Davies Jr., MD Abdomen/Pelvis CT 09/21/16 1520 Signed Impressions: Service Date/Time: Wednesday, September 21, 2016 17:35 - CONCLUSION: 1. Progression of metastatic disease to the liver since 2014 and 2015. Also development of liver cirrhosis with varices. 2. Moderate ascites. 3. Progression of metastatic bone disease. Braeden Duncan MD Lumbar Spine MRI 09/21/16 0000 Signed Impressions: Service Date/Time: Wednesday, September 21, 2016 18:19 - CONCLUSION: 1. Multiple metastatic lesions scattered throughout the lumbar spine. No central canal stenosis or neural impingement. No vertebral body collapse. Bro Davies Jr., MD Objective Remarks GENERAL: This is a well-nourished, well-developed patient, in no apparent distress. CARDIOVASCULAR: Regular rate and rhythm without murmurs, gallops, or rubs. RESPIRATORY: Clear to auscultation. Breath sounds equal bilaterally. No wheezes , rales, or rhonchi. GASTROINTESTINAL: abdomen distended c/w ascites, +BS x 4, no g/r/r MUSCULOSKELETAL: Extremities without clubbing, cyanosis, or edema. NEURO: Alert & Oriented x4 to person, place, time, situation. Moves all ext x4 A/P Problem List: (1) Ascites Status: Acute Plan: - pt has metastatic breast cancer to liver and bone - albumin low at 2.9 - pt had firs paracentesis 09/14/16, pt has had a reoccurrence of ascites - 600ml of ascitic fluid removed 09/22/16. Radiology suspects loculation d/t difficulty obtaining return of fluid during paracentesis - Will d/w pt's Oncology service. 09/24. Per pt her Oncologist, Dr. Rose, is out -of-town, but RN LABOR DELIVERY might be available. (2) Breast cancer metastasized to liver Status: Acute Plan: - Pt follows with Dr. Rose - see above (3) Chronic back pain Status: Acute Plan: - MRI lumbar spine (09/22/16), shows multiple metastatic lesions - following paracentesis, will defer back to Dr. Rose - consider evaluation by Radiation Oncology (4) Dizziness Status: Acute Plan: - suspect this d/t deconditioning and pt's disease process - obtain orthostatic vitals - obtain CT brain, r/o brain metastasis - observe on telemetry - obtain carotid US Problem Qualifiers (1) Ascites: Qualified Code: R18.8 - Other ascites (2) Breast cancer metastasized to liver: Qualified Code: C50.919 - Breast cancer metastasized to liver, unspecified laterality Osmel Beal DO Sep 23, 2016 15:43
[2016-09-23] MEDS: PANTOPRAZOLE SOD 40 MG DELAYED RELEASE TAB PO SCH (15:54)
--- NOTE | 2016-09-23 17:11 | RADRPT ---
EXAM DATE/TIME: 09/23/2016 16:29 [facility] COMPARISON: No previous studies available for comparison. INDICATIONS : Syncope. MEDICAL HISTORY : Hypertension. Carcinoma, left breast with mets to bone and liver. Chemotherapy. SURGICAL HISTORY : section. Hysterectomy. Subclavian port placement. Rhinoplasty. ENCOUNTER: Initial ACUITY: 4-6 days PAIN SCORE: 0/10 LOCATION: Bilateral neck PEAK SYSTOLIC VELOCITIES (cm/sec): ICA/CCA RATIO: Right: 1.2 Left: 0.9 ICA: Right: 112.1 Left: 95.0 CCA: Right: 91.9 Left: 106.7 ECA: Right: 94.4 Left: 78.6 VERTEBRAL: Right: 70.7 antegrade Left: 78.6 antegrade Elevated flow velocities and ICA/CCA ratios have been found to correlate with increased degrees of vessel stenosis, calculated as percentage of diameter relative to a normal segment of distal ICA/CCA FINDINGS: RIGHT CAROTID: No significant stenosis is visualized. The waveforms are within normal limits. LEFT CAROTID: No significant stenosis is visualized. The waveforms are within normal limits. VERTEBRAL ARTERIES: Antegrade flow is seen in both vertebral arteries. MISCELLANEOUS: None. CONCLUSION: Normal examination. Emanuel Mosquera MD on September 23, 2016 at 17:07 Board Certified Radiologist. This report was verified electronically.
[2016-09-24] VITALS (8 sets, daily range): BP systolic 107–156; BP diastolic 55–93; PULSE 104–114; RESP 15–18; TEMP 96.3–99.1; O2SAT 95–96
--- NOTE | 2016-09-24 08:39 | HHI.PR ---
Subjective Remarks still can only take sips. feels full no bm c/o back spasms Objective Vitals nad lying in bed abdomen full/mild distended/bs ext no edema Vital Signs Date Time Temp Pulse Resp B/P Pulse Ox O2 Delivery O2 Flow Rate FiO2 09/24/16 07:39 106 09/24/16 04:00 98.3 108 16 156/79 95 144/75 132/69 09/24/16 00:00 99.1 106 17 135/70 95 09/23/16 20:04 94 09/23/16 20:00 98.3 97 16 119/73 93 09/23/16 19:32 103 112/64 09/23/16 19:31 104 109/67 09/23/16 19:30 100 112/67 09/23/16 17:00 98.4 107 18 135/73 93 09/23/16 16:20 93 09/23/16 14:59 98.5 98 16 114/71 93 09/23/16 11:00 98.4 99 12 136/88 94 09/23/16 09/23/16 09/24/16 15:00 23:00 07:00 Intake Total 720 ml Output Total 200 ml Balance 720 ml -200 ml Intake Oral 720 ml Output Urine Total 200 ml # Voids 2 Result Diagram: 09/22/16 1010 09/22/16 1010 Imaging Last Impressions Chest X-Ray 09/21/16 1649 Signed Impressions: Service Date/Time: Wednesday, September 21, 2016 17:48 - CONCLUSION: No acute disease. Bro Davies Jr., MD Abdomen/Pelvis CT 09/21/16 1520 Signed Impressions: Service Date/Time: Wednesday, September 21, 2016 17:35 - CONCLUSION: 1. Progression of metastatic disease to the liver since 2014 and 2015. Also development of liver cirrhosis with varices. 2. Moderate ascites. 3. Progression of metastatic bone disease. Braeden Duncan MD Lumbar Spine MRI 09/21/16 0000 Signed Impressions: Service Date/Time: Wednesday, September 21, 2016 18:19 - CONCLUSION: 1. Multiple metastatic lesions scattered throughout the lumbar spine. No central canal stenosis or neural impingement. No vertebral body collapse. Bro Davies Jr., MD A/P Problem List: (1) Ascites Status: Acute Plan: - pt has metastatic breast cancer to liver and bone -Sent to [place] by her oncologist for recurrent ascites and worsening back pain - pt had first paracentesis 09/14/16, pt has had a reoccurrence of ascites - 600ml of ascitic fluid removed 09/22/16. Radiology suspects loculation d/t difficulty obtaining return of fluid during paracentesis -MRI spine shows mets to t12,L2-4 but no spinal canal or neuroforaminal compromise -cont long acting morphine, add flexeril. laculose for constipation. -Pt with some mild orthostasis. instructed on position change slowly -- Will call her oncologist office today (2) Breast cancer metastasized to liver Status: Acute Plan: - Pt follows with Dr. Rose - see above (3) Chronic back pain Status: Acute Plan: - MRI lumbar spine (09/22/16), shows multiple metastatic lesions - following paracentesis, will defer back to Dr. Rose - consider evaluation by Radiation Oncology (4) Dizziness Status: Acute Plan: - see above Problem Qualifiers (1) Ascites: Qualified Code: R18.8 - Other ascites (2) Breast cancer metastasized to liver: Qualified Code: C50.919 - Breast cancer metastasized to liver, unspecified laterality Ricki Varner MD Sep 24, 2016 08:39
[2016-09-24] MEDS: ONDANSETRON INJ 8 MG in DEXTROSE 5% IN WATER INJ 50 ML IV PRN ×2 (09:42)
[2016-09-24] MEDS: CYCLOBENZAPRINE HCL 10 MG TAB PO SCH ×3 (09:49→20:40)
[2016-09-24] MEDS: SODIUM CHLORIDE 0.9% FLUSH 10 ML FLUSH IV FLUSH SCH ×2 (09:49→20:40)
[2016-09-24] MEDS: LACTULOSE SYRUP 20 GM/30 ML CUP PO SCH ×2 (09:49→18:49)
[2016-09-24] MEDS: PANTOPRAZOLE SOD 40 MG DELAYED RELEASE TAB PO SCH (09:49)
[2016-09-24] MEDS: MORPHINE SULFATE 15 MG CONTROLLED RELEASE TAB PO SCH ×2 (09:49→20:39)
[2016-09-24] MEDS: DOCUSATE SODIUM 50 MG/SENNA 8.6 MG TAB PO SCH ×2 (09:50→20:39)
[2016-09-24] MEDS ORDERED: fentaNYL CITRATE 250 MCG/5 ML AMP ONE (14:53)
[2016-09-24] MEDS ORDERED: LORazepam 2 MG/ML VIAL ONE (14:53)
[2016-09-24] MEDS ORDERED: LIDOCAINE 1%/EPINEPHrine 1:100,000 SOLN 20 ML VIAL ONE (14:59)
--- NOTE | 2016-09-24 16:02 | PD.RAD ---
Post CT Procedure Prog Note Pre Procedure Diagnosis: (1) Ascites (2) Breast cancer metastasized to liver Post Procedure Diagnosis: (1) Ascites (2) Breast cancer metastasized to liver Procedure Date: Sep 24, 2016 Supervising Radiologist: Emanuel Butler Estimated blood loss: minimal Anesthesia: Other Plan of Activity Patient to Unit: Other Patient Condition: Good Additional Comments: return to floor since no conscious sedation given See PACS Report for procedural detail/treatment Drainage Procedure Procedure 1 Side: Right Procedure Type: Paracentesis Drainage: Suction Fluid Removal (CCs): 850 Fluid Description: Yellow Findings: removed 850 mL of dark yellow fluid. Very deep to access peritoneal space around 10cm. small amount of fluid remaining in deep pelvis but overall no significant fluid remaining. Plan return to floor Emanuel Butler MD Sep 24, 2016 16:02
--- NOTE | 2016-09-24 16:19 | RADRPT ---
EXAM DATE/TIME: 09/24/2016 15:26 [facility] COMPARISON: No previous studies available for comparison. INDICATIONS : Ascites. SEDATION TIME: 30 minutes MEDICATION(S): 1.) 2 mg lorazepam (Ativan) IV 2.) 150 mcg fentanyl (Sublimaze) IV DEVICE(S): 1.) 6 Fr [id number] FLUID: Total volume of 850 cc of clear, yellow fluid was removed. Fluid was sent for laboratory ordered studies. MEDICAL HISTORY : Carcinoma, breast. SURGICAL HISTORY : Hysterectomy. ENCOUNTER: Initial ACUITY: 1 day PAIN SCORE: 5/10 LOCATION: Bilateral abdomen PROCEDURE: 1.) Conscious sedation with continuous EKG and oximetry monitoring. 2.) EKG and oximetry remained stable throughout the procedure. PROCEDURE : CT guided paracentesis. The risks, benefits and alternatives to the procedure were explained and verbal and written consent w as obtained. Using automated exposure control and adjustment of the mA and/or kV according to patien t size, radiation dose was kept as low as reasonably achievable to obtain optimal diagnostic quality images. The site was prepped in sterile fashion. Full sterile technique was used, including cap, ma sk, sterile gloves and gown and a large sterile sheet. Hand hygiene and 2% chlorhexidine and/or beta dine/alcohol prep was utilized per protocol for cutaneous antisepsis. The skin and subcutaneous tiss ues were infiltrated with local anesthetic solution. DICOM format image data is available electronic ally for review and comparison. After marking the appropriate location on the right lower quadrant lateral abdominal wall, the skin w as prepped and draped in a sterile fashion. Lidocaine was used as a local anesthetic. A small dermato shruthi was made and a 6 Togolese safety centesis catheter was advanced into the fluid. A total of 850 cc of dark yellow fluid was removed. Post procedure imaging demonstrates no immediate complication. Ther e is subcutaneous air, as expected. A small amount of fluid remains present in the deep pelvis. Overa ll, there is only a small volume of residual peritoneal fluid remaining. CONCLUSION: Uncomplicated CT guided paracentesis with removal of 850 mL of fluid. Sample was saved and sent to merlene patel for evaluation, as ordered. There were no immediate complications. Only a small volume of residual fluid remains. Emanuel Butler MD on September 24, 2016 at 16:14 Board Certified Radiologist. This report was verified electronically.
[2016-09-24 18:07] LABS: PERITONEAL WBC 562 /MM3 (0-10)
[2016-09-24 18:08] LABS: PERITONEAL HISTIOCYTES 20 %; PERITONEAL LYMPHS 60 %; PERITONEAL MESOTHELIAL 5 %; PERITONEAL POLYS(SEGS) 15 %
[2016-09-24] MEDS ORDERED: SODIUM CHLORIDE 0.9% FLUSH 10 ML FLUSH IV FLUSH PRN (23:30)
[2016-09-25] VITALS (8 sets, daily range): BP systolic 102–151; BP diastolic 61–87; PULSE 95–129; RESP 16–18; TEMP 97–98.6; O2SAT 93–96
[2016-09-25] MEDS: CYCLOBENZAPRINE HCL 10 MG TAB PO SCH (05:54)
--- NOTE | 2016-09-25 08:11 | HHI.PR ---
Subjective Remarks sleepy but awakens and answers questions appropriately bowels moving tolerated food. Objective Vitals lying in bed sleepy but awakens and answers appropriately heart reg. tachy lung cta abd s/nt/nabs ext no edema Vital Signs Date Time Temp Pulse Resp B/P Pulse Ox O2 Delivery O2 Flow Rate FiO2 09/25/16 04:00 97.7 114 18 137/81 96 125/61 129/62 09/25/16 00:00 97.0 114 18 142/87 94 142/87 136/65 09/24/16 20:19 108 09/24/16 20:00 97.6 114 18 126/76 96 107/68 121/55 09/24/16 16:30 16 09/24/16 16:30 16 09/24/16 16:00 98.9 113 18 131/93 96 09/24/16 12:30 97.0 104 15 138/78 95 135/74 124/68 09/24/16 08:20 96.3 106 16 153/83 95 138/71 128/71 09/24/16 09/24/16 09/25/16 15:00 23:00 07:00 Intake Total 360 ml Balance 360 ml Intake Oral 360 ml # Voids 1 # Bowel Movements 1 Result Diagram: 09/22/16 1010 09/22/16 1010 Imaging Last Impressions Chest X-Ray 09/21/16 1649 Signed Impressions: Service Date/Time: Wednesday, September 21, 2016 17:48 - CONCLUSION: No acute disease. Bro Davies Jr., MD Abdomen/Pelvis CT 09/21/16 1520 Signed Impressions: Service Date/Time: Wednesday, September 21, 2016 17:35 - CONCLUSION: 1. Progression of metastatic disease to the liver since 2014 and 2015. Also development of liver cirrhosis with varices. 2. Moderate ascites. 3. Progression of metastatic bone disease. Braeden Duncan MD Lumbar Spine MRI 09/21/16 0000 Signed Impressions: Service Date/Time: Wednesday, September 21, 2016 18:19 - CONCLUSION: 1. Multiple metastatic lesions scattered throughout the lumbar spine. No central canal stenosis or neural impingement. No vertebral body collapse. Bro Davies Jr., MD A/P Problem List: (1) Ascites Status: Acute Plan: - pt has metastatic breast cancer to liver and bone. She has cirrhosis of the liver. - Recently developed ascites requiring paracentesis at [place]. -Sent to [place] by her oncologist for recurrent ascites and worsening back pain - pt had first paracentesis 09/14/16, pt has had a reoccurrence of ascites - 600ml of ascitic fluid removed 09/22/16. Radiology suspects loculation d/t difficulty obtaining return of fluid during paracentesis -MRI spine shows mets to t12,L2-4 but no spinal canal or neuroforaminal compromise -CT guided aspiration of 850ml ascites on 09/24 with small amt of residual -cont long acting morphine, lower flexeril. bowels moving with lactulose -Pt reluctant to stay on pain meds. I called her Oncology office and they will arrange radiation oncology referral -Pt with some mild orthostasis. instructed on position change slowly -Today pt has some worsening of her sinus tach. check cbc, bmp. add low dose bb. DC later today if stable vs monitoring one more night. (2) Breast cancer metastasized to liver Status: Acute Plan: - Pt follows with Dr. Rose - see above (3) Chronic back pain Status: Acute Plan: - MRI lumbar spine (09/22/16), shows multiple metastatic lesions - following paracentesis, will defer back to Dr. Rose - consider evaluation by Radiation Oncology (4) Dizziness Status: Acute Plan: - see above Problem Qualifiers (1) Ascites: Qualified Code: R18.8 - Other ascites (2) Breast cancer metastasized to liver: Qualified Code: C50.919 - Breast cancer metastasized to liver, unspecified laterality Ricki Varner MD Sep 25, 2016 08:11
[2016-09-25] MEDS: MORPHINE SULFATE 15 MG CONTROLLED RELEASE TAB PO SCH (09:04)
[2016-09-25] MEDS: DOCUSATE SODIUM 50 MG/SENNA 8.6 MG TAB PO SCH ×2 (09:04→21:20)
[2016-09-25] MEDS: PANTOPRAZOLE SOD 40 MG DELAYED RELEASE TAB PO SCH (09:04)
[2016-09-25] MEDS: METOPROLOL TARTRATE 25 MG TAB PO SCH ×2 (09:04→21:20)
[2016-09-25] MEDS: SODIUM CHLORIDE 0.9% FLUSH 10 ML FLUSH IV FLUSH SCH ×2 (09:08→21:20)
[2016-09-25 10:04] LABS: AUTOMATED NEUTROPHIL # 3.4 TH/MM3 (1.8-7.7); BASOPHIL % 0.6 % (0.0-2.0); EOSINOPHIL # 0.1 TH/MM3 (0-0.4); EOSINOPHIL % 2.3 % (0.0-4.0); HEMATOCRIT 37.7 % (35.0-46.0); HEMO FLAGS DIFF FINAL; LYMPHOCYTE # 1.1 TH/MM3 (1.0-4.8); MEAN CELL VOLUME 91.7 FL (80.0-100.0); MEAN CORPUSCULAR HEMOGLOBIN 30.9 PG (27.0-34.0); MEAN CORPUSCULAR HGB CONC 33.8 % (32.0-36.0); MONO % 14.3 % (0.0-8.0); NEUT % 62.8 % (16.0-70.0); PLATELET COUNT 123 TH/MM3 (150-450); RED BLOOD COUNT 4.12 MIL/MM3 (4.00-5.30); RED CELL DISTRIBUTION WIDTH 17.4 % (11.6-17.2); WHITE BLOOD COUNT 5.3 TH/MM3 (4.0-11.0)
[2016-09-25 10:52] LABS: BICARBONATE 27.6 MEQ/L (21.0-32.0); POTASSIUM 4.5 MEQ/L (3.5-5.1)
[2016-09-25] MEDS ORDERED: DEXTROSE 50% IN WATER 50 ML VIAL(D50) IV PRN (13:45)
[2016-09-25] MEDS ORDERED: GLUCAGON 1 MG/ML VIAL IM PRN (13:45)
[2016-09-25] MEDS ORDERED: CYCLOBENZAPRINE HCL 10 MG TAB PO SCH (14:00)
[2016-09-25 14:27] LABS: INDIRECT BILIRUBIN 1.9 MG/DL (0.0-0.8); TOTAL BILIRUBIN ADULT 10.1 MG/DL (0.2-1.0)
--- NOTE | 2016-09-25 21:41 | RADRPT ---
EXAM DATE/TIME: 09/25/2016 20:45 [facility] COMPARISON: CT ABDOMEN W/O CONTRAST, December 21, 2015, 16:47. CT ABDOMEN & PELVIS W CONTRAST, September 21, 2016, 1 7:35. [facility], CT ABDOMEN AND PELVIS, July 26, 2016[facility], CT ABDOMEN AND PELVI S, May 10, 2016. [facility], CT ABDOMEN AND PELVIS, December 12, 2015. INDICATIONS : Increased lab values. MEDICAL HISTORY : Hypertension. Migraines. Depression. Left breast cancer with mets to bone and liver. Chemotherapy . SURGICAL HISTORY : section. Hysterectomy. Right port inserted. Rhinoplasty. ENCOUNTER: Initial ACUITY: 1 month PAIN SCORE: 2/10 LOCATION: Bilateral upper quadrant MEASUREMENTS: LIVER: 17.3 cm length COMMON DUCT: 5 mm RIGHT KIDNEY: 10.8 x 4.3 x 4.2 cm SPLEEN: 12.8 cm length FINDINGS: LIVER: The liver is diffusely abnormal being extremely heterogeneous. There is mild amount ascites seen. COMMON DUCT: No intraluminal mass or stone visualized. GALLBLADDER: The gallbladder is not identified. PANCREAS: The visualized portions are within normal limits. RIGHT KIDNEY: No hydronephrosis, stone or mass. SPLEEN: The spleen is upper limits of normal for size. Focal cysts like lesion is not seen. CONCLUSION: 1. Diffusely abnormal liver. The patient has diffuse metastatic disease. 2. Mild ascites. 3. The spleen is upper limits of normal for size which can be seen with hepatic disease and portal hy pertension. 4. The gallbladder is not identified. The biliary system is not dilated. Emanuel Mosquera MD on September 25, 2016 at 21:32 Board Certified Radiologist. This report was verified electronically.
[2016-09-26] VITALS: BP 113/75; PULSE 95; RESP 17; TEMP 97.9; O2SAT 93
[2016-09-26 03:50] LABS: BODY FLUID LDH LESS THAN 10 U/L (()); BODY FLUID LDH SOURCE PERITONEAL (())
[2016-09-26 04:00] VITALS: BP 118/74; PULSE 98; RESP 17; TEMP 97.9; O2SAT 94
[2016-09-26 05:50] LABS: INDIRECT BILIRUBIN 2.2 MG/DL (0.0-0.8); TOTAL BILIRUBIN ADULT 10.2 MG/DL (0.2-1.0)
[2016-09-26 08:03] VITALS: PULSE 104
[2016-09-26] MEDS: DOCUSATE SODIUM 50 MG/SENNA 8.6 MG TAB PO SCH (08:39)
[2016-09-26] MEDS: PANTOPRAZOLE SOD 40 MG DELAYED RELEASE TAB PO SCH (08:39)
[2016-09-26] MEDS: SODIUM CHLORIDE 0.9% FLUSH 10 ML FLUSH IV FLUSH SCH (08:39)
[2016-09-26] MEDS: METOPROLOL TARTRATE 25 MG TAB PO SCH (08:39)
[2016-09-26 08:44] VITALS: BP 119/73; PULSE 97; RESP 16; TEMP 97.6; O2SAT 94
--- NOTE | 2016-09-26 10:00 | HHI.PR ---
Subjective Remarks PT ALERT AND ORIENTED still wants to pursue more chemo Objective Vitals jaundice heart reg lung good air entry abd s/nt ext no edema Vital Signs Date Time Temp Pulse Resp B/P Pulse Ox O2 Delivery O2 Flow Rate FiO2 09/26/16 08:44 97.6 97 16 119/73 94 09/26/16 04:00 97.9 98 17 118/74 94 09/26/16 00:00 97.9 95 17 113/75 93 09/25/16 20:07 100 09/25/16 20:00 97.9 96 18 126/65 94 09/25/16 17:00 97.9 95 16 125/74 96 09/25/16 13:15 98.6 107 18 119/73 93 108/68 102/64 09/25/16 09/25/16 09/26/16 15:00 23:00 07:00 Intake Total 600 ml 200 ml Balance 600 ml 200 ml Intake Oral 600 ml 200 ml # Voids 3 3 Result Diagram: 09/25/16 0905 09/25/16 0905 Imaging Last Impressions Chest X-Ray 09/21/16 1649 Signed Impressions: Service Date/Time: Wednesday, September 21, 2016 17:48 - CONCLUSION: No acute disease. Bro Davies Jr., MD Abdomen/Pelvis CT 09/21/16 1520 Signed Impressions: Service Date/Time: Wednesday, September 21, 2016 17:35 - CONCLUSION: 1. Progression of metastatic disease to the liver since 2014 and 2015. Also development of liver cirrhosis with varices. 2. Moderate ascites. 3. Progression of metastatic bone disease. Braeden Duncan MD Lumbar Spine MRI 09/21/16 0000 Signed Impressions: Service Date/Time: Wednesday, September 21, 2016 18:19 - CONCLUSION: 1. Multiple metastatic lesions scattered throughout the lumbar spine. No central canal stenosis or neural impingement. No vertebral body collapse. Bro Davies Jr., MD A/P Problem List: (1) Ascites Status: Acute Plan: - pt has metastatic breast cancer to liver and bone. She has cirrhosis of the liver. - Recently developed ascites requiring paracentesis at [place]. -Sent to [place] by her oncologist for recurrent ascites and worsening back pain - pt had first paracentesis 09/14/16, pt has had a reoccurrence of ascites - 600ml of ascitic fluid removed 09/22/16. Radiology suspects loculation d/t difficulty obtaining return of fluid during paracentesis -MRI spine shows mets to t12,L2-4 but no spinal canal or neuroforaminal compromise -CT guided aspiration of 850ml ascites on 09/24 with small amt of residual -cont long acting morphine, lower flexeril. bowels moving with lactulose -Pt reluctant to stay on pain meds. I called her Oncology office and they will arrange radiation oncology referral -Pt with some mild orthostasis. instructed on position change slowly -pt hadsome worsening of her sinus tach.....improved on low dose bb - overall her liver function continues to decline and bilirubin now over 10. u/ s shows no dilation of the biliary system to stent or drain. I explained this to pt and it is most likely due to progressive tumor invasion of liver tissue and intrahepatic obstruction. also the pain meds could be adding to some cholestasis. We briefly talked about cessation of treatment and comfort care. she wants to continue the fight and get back to chemotherapy. She does wish to be DNR in event of cardiopulmonary collapse. I spoke to CAT at Dr Marshall office and they can see her at 3pm today to discuss next step. But overall she appears to be progressing and further deterioration soon is likely. (2) Breast cancer metastasized to liver Status: Acute Plan: - Pt follows with Dr. Rose - see above (3) Chronic back pain Status: Acute Plan: - MRI lumbar spine (09/22/16), shows multiple metastatic lesions - following paracentesis, will defer back to Dr. Rose - consider evaluation by Radiation Oncology (4) Dizziness Status: Acute Plan: - see above Problem Qualifiers (1) Ascites: Qualified Code: R18.8 - Other ascites (2) Breast cancer metastasized to liver: Qualified Code: C50.919 - Breast cancer metastasized to liver, unspecified laterality Ricki Varner MD Sep 26, 2016 09:59
[2016-09-26] MEDS ORDERED: METO25TA3 PO (10:02)
[2016-09-26] MEDS ORDERED: CYCL5TAB PO (10:02)
[2016-09-26] MEDS ORDERED: MORP1TAB24 PO (10:02)
[2016-09-26] MEDS ORDERED: HYDR-3133 PO (10:03)
--- NOTE | 2016-09-26 10:04 | HHI.DCPOC ---
Discharge Care Plan Diagnosis: (1) Breast cancer metastasized to bone (2) Breast cancer metastasized to liver (3) Cirrhosis (4) Ascites (5) Chronic back pain (6) Sinus tachycardia Goals to Promote Your Health * To prevent worsening of your condition and complications * To maintain your health at the optimal level Directions to Meet Your Goals Take your medications as prescribed Follow your dietary instruction Follow activity as directed Keep your appointments as scheduled Take your immunizations and boosters as scheduled If your symptoms worsen call your PCP, if no PCP go to Urgent Care Center or Emergency Room Smoking is Dangerous to Your Health. Avoid second hand smoke Call the 24-hour hour crisis hotline for domestic abuse at Ricki Varner MD Sep 26, 2016 10:04
[2016-09-26] MEDS ORDERED: hydrOXYzine HCL 25 MG TAB PO ONE (10:15)
--- NOTE | 2016-09-27 13:35 | HHI.DS ---
Discharge Summary Admission Date Sep 23, 2016 at 15:37 Discharge Date: Sep 26, 2016 Admitting Diagnosis Ascites, Breast Cancer w/ Metastases to Liver and Bone (1) Ascites Diagnosis: Principal (2) Breast cancer metastasized to liver Diagnosis: Principal (3) Chronic back pain Diagnosis: Principal (4) Dizziness Diagnosis: Principal (5) Breast cancer metastasized to bone Diagnosis: Principal CBC/BMP: 09/25/16 0905 09/25/16 0905 Significant Findings Laboratory Tests Test 09/24/16 09/25/16 09/25/16 09/26/16 15:55 09:05 13:45 04:38 Peritoneal Fluid WBC 562 /MM3 (0-10) Peritoneal Fluid RBC 1659 /MM3 (0-0) Red Cell Distribution Width 17.4 % (11.6-17.2) Platelet Count 123 TH/MM3 (150-450) Monocytes (%) (Auto) 14.3 % (0.0-8.0) Sodium Level 132 MEQ/L (136-145) Chloride Level 96 MEQ/L (98-107) Random Glucose 65 MG/DL (74-106) Total Bilirubin 10.1 MG/DL 10.2 MG/DL (0.2-1.0) (0.2-1.0) Direct Bilirubin 8.2 MG/DL 8.0 MG/DL (0.0-0.2) (0.0-0.2) Indirect Bilirubin 1.9 MG/DL 2.2 MG/DL (0.0-0.8) (0.0-0.8) Aspartate Amino Transf 367 U/L (15-37) 408 U/L (15-37) (AST/SGOT) Alanine Aminotransferase 71 U/L (10-53) 73 U/L (10-53) (ALT/SGPT) Alkaline Phosphatase 485 U/L 417 U/L (45-117) (45-117) Ammonia 41 MCMOL/L (11-32) Total Protein 6.1 GM/DL 5.5 GM/DL (6.4-8.2) (6.4-8.2) Albumin 2.2 GM/DL 2.0 GM/DL (3.4-5.0) (3.4-5.0) Hospital Course - pt has metastatic breast cancer to liver and bone. She has cirrhosis of the liver. - Recently developed ascites requiring paracentesis at [place]. -Sent to [place] by her oncologist for recurrent ascites and worsening back pain - pt had first paracentesis 09/14/16, pt has had a reoccurrence of ascites - 600ml of ascitic fluid removed 09/22/16. Radiology suspects loculation d/t difficulty obtaining return of fluid during paracentesis -MRI spine shows mets to t12,L2-4 but no spinal canal or neuroforaminal compromise -CT guided aspiration of 850ml ascites on 09/24 with small amt of residual -cont long acting morphine, lower flexeril. bowels moving with lactulose -Pt reluctant to stay on pain meds. I called her Oncology office and they will arrange radiation oncology referral -Pt with some mild orthostasis. instructed on position change slowly -pt hadsome worsening of her sinus tach.....improved on low dose bb - overall her liver function continues to decline and bilirubin now over 10. u/ s shows no dilation of the biliary system to stent or drain. I explained this to pt and it is most likely due to progressive tumor invasion of liver tissue and intrahepatic obstruction. also the pain meds could be adding to some cholestasis. We briefly talked about cessation of treatment and comfort care. she wants to continue the fight and get back to chemotherapy. She does wish to be DNR in event of cardiopulmonary collapse. I spoke to CAT at Dr Marshall office and they can see her at 3pm today to discuss next step. But overall she appears to be progressing and further deterioration soon is likely. Pt Condition on Discharge: Deteriorating Discharge Disposition: Discharge Home Discharge Instructions DIET: Follow Instructions for: As Tolerated, No Restrictions Activities you can perform: Regular-No Restrictions Follow up Referrals: Oncology - Today with DR Rose New Medications: Cyclobenzaprine (Flexeril) 5 Mg Tab 5 MG PO TID PRN muscle spasm #60 Ref 0 TAB Hydroxyzine HCl (Hydroxyzine HCl) 25 Mg Tab 25 MG PO QID PRN ITCHING #30 Ref 0 TAB Morphine ER (Morphine ER) 15 Mg Tab 15 MG PO BID Pain Management #60 Ref 0 TAB Metoprolol Tartrate (Metoprolol Tartrate) 25 Mg Tab 25 MG PO Q12HR tachycardia #60 TAB Continued Medications: Capecitabine (Capecitabine) 500 Mg Tab 1500 MG PO BID Cytotoxic agent. Swallow whole with water 30 minutes after a meal. Do not cut or crush. TAB Oxycodone (Oxycodone) 10 Mg Tab 10 MG PO Q4H PRN PAIN Ref 0 TAB Discontinued Medications: Morphine ER (Morphine ER) 15 Mg Tab 5 MG PO BID Pain Management Ref 0 TAB Ricki Varner MD Sep 27, 2016 13:35
== END 2016-09-26 11:54 | disposition home or self-care (01) | DRG 436 ==
LOC: NEPE 14:12 → NEDA 19:53 → NEPGCP 22:01 → OBSVTOIN 09-23 15:37 → HOCA 09-23 17:09
PROVIDERS: ADMIT Hospitalist; ATTEND Hospitalist
PROC: 0W9G3ZZ Drainage of Peritoneal Cavity, Percutaneous Approach (ICD-10-PCS; principal; 2016-09-22)
PROC: 0W9G3ZX Drainage of Peritoneal Cavity, Percutaneous Approach, Diagnostic (ICD-10-PCS; 2016-09-24)
DX: C78.7 Secondary malignant neoplasm of liver and intrahepatic bile duct (principal); R18.8 Other ascites; C79.51 Secondary malignant neoplasm of bone; K74.60 Unspecified cirrhosis of liver; C50.919 Malignant neoplasm of unspecified site of unspecified female breast; G89.29 Other chronic pain; M54.9 Dorsalgia, unspecified; Z79.899 Other long term (current) drug therapy; Z87.891 Personal history of nicotine dependence; R00.0 Tachycardia, unspecified; R11.0 Nausea; R42 Dizziness and giddiness; K59.00 Constipation, unspecified; I95.1 Orthostatic hypotension; Z66 Do not resuscitate
CPT/HCPCS: 49083; 71010; 72158; 74177; 76705; 77012; 80048; 80053; 80076; 81001; 82042; 82140; 82948; 83605; 83615; 83690; 84155; 84157; 85025; 85610; 85730; 87070; 87205; 89051; 93005; 93880; A9579; C1729; J2060; J2270; J2405; J3010; J7030; Q9967